=== PATIENT | female | born 2000 | race Caucasian/White ===

== ENCOUNTER 2022-08-20 12:06 | Emergency (ER) | payer OTHER, MEDICAID, SELFPAY ==
[2022-08-20 12:19] VITALS: BP 115/81; PULSE 89; RESP 14; TEMP 36.6; O2SAT 98; BMI 21.4
--- NOTE | 2022-08-20 13:14 | ED_ITS ---
HPI - General Adult General Time Seen by Provider: 13:14 Date Seen: 08/20/22 Chief complaint: Dizziness/Vertigo Stated complaint: Dehydrated/lightheaded/fatigue Time Seen by Provider: 08/20/22 13:10 Source: patient, RN notes reviewed and old records reviewed Mode of arrival: ambulatory Limitations: no limitations Related Data Home Medications Medication Instructions Recorded Confirmed dextroamphetamine-amphetamine ER ea PO 05/02/22 05/02/22 20 mg 24hr capsule,extend release (Adderall XR) drospirenone 3 mg-ethinyl 1 tab PO QDAY 05/02/22 05/02/22 estradiol 0.02 mg tablet (JAVIER (28)) escitalopram oxalate 20 mg tablet 20 mg PO QDAY 05/02/22 05/02/22 midodrine 5 mg tablet 5 mg PO TID 05/02/22 05/02/22 ondansetron 4 mg disintegrating 4 mg PO Q8H PRN nausea and vomiting 05/02/22 05/02/22 tablet propranolol 20 mg tablet 20 mg PO TID 05/02/22 05/02/22 simethicone 80 mg chewable tablet 80 mg PO BID-QID PRN 05/02/22 05/02/22 (Gas Relief (simethicone)) Allergies Allergy/AdvReac Type Severity Reaction Status Date / Time No Known Drug Allergies Allergy Verified 05/02/22 14:12 [facility] Medical History (Updated 05/02/22 @ 14:33 by Kamilah Martínez, MARKET [employer]EARCH COORDINATOR, HOME [employer]PLI[employer]ES MECH[employer]IC) Gastroparesis POTS (postural orthostatic tachycardia syndrome) Social History Smoking Status: Never smoker Exam Const: Vital Signs, click to edit/add: Vital Signs - 24 hr 08/20/22 12:19 Temperature 97.9 F Pulse Rate [Right Pulse Oximeter] 89 Respiratory Rate 14 Blood Pressure [Ri ght Upper Arm] 115/81 Pulse Oximetry 98 Oxygen Delivery Me thod Room Air Course Vital Signs Vital signs: Initial Vital Signs Temperature 97.9 F 08/20/22 12:19 Temperature Source Temporal Artery Scan 08/20/22 12:19 Pulse Rate 89 08/20/22 12:19 Respiratory Rate 14 08/20/22 12:19 Blood Pressure 115/81 08/20/22 12:19 Blood Pressure Mean 92 08/20/22 12:19 Blood Pressure Position Sitting 08/20/22 12:19 Pulse Oximetry 98 08/20/22 12:19 Oxygen Delivery Method 08/20/22 12:19 Vital Signs Temperature 97.9 F 08/20/22 12:19 Pulse Rate 89 08/20/22 12:19 Respiratory Rate 14 08/20/22 12:19 Blood Pressure 115/81 08/20/22 12:19 Pulse Oximetry 98 08/20/22 12:19 Oxygen Delivery Method 08/20/22 12:19 Temperature 97.9 F 08/20/22 12:19 Pulse Rate 89 08/20/22 12:19 Respiratory Rate 14 08/20/22 12:19 Blood Pressure 115/81 08/20/22 12:19 Pulse Oximetry 98 08/20/22 12:19 Oxygen Delivery Method 08/20/22 12:19 Discharge Plan Discharge Prescriptions: No Action propranolol 20 mg tablet 20 mg PO TID midodrine 5 mg tablet 5 mg PO TID Label Comments: TAKE 1 TABLET BY MOUTH 3 TIMES DAILY. dextroamphetamine-amphetamine [Adderall XR] 20 mg capsule,extended release 24hr PO Label Comments: TAKE 1 CAPSULE BY MOUTH EVERY DAY escitalopram oxalate 20 mg tablet 20 mg PO QDAY Label Comments: TAKE 1 TABLET BY MOUTH EVERY DAY ondansetron 4 mg tablet,disintegrating 4 mg PO Q8H PRN (Reason: nausea and vomiting) Label Comments: TAKE 1 TABLET BY MOUTH EVERY 8 HOURS NEEDED FOR NAUSEA simethicone [Gas Relief (simethicone)] 80 mg tablet,chewable 80 mg PO BID-QID PRN drospirenone-ethinyl estradiol [JAVIER (28)] 3-0.02 mg tablet 1 tab PO QDAY Follow Up/Referrals: Provider,Not a Local [Primary Care Provider] -
--- NOTE | 2022-08-20 13:24 | ED_ITS ---
HPI - Dizziness General Date Seen: 08/20/22 Chief Complaint: Dizziness/Vertigo Stated Complaint: Dehydrated/lightheaded/fatigue Time Seen by Provider: 08/20/22 13:10 Source: patient Mode of arrival: ambulatory Limitations: no limitations History of Present Illness HPI Narrative: Patient is a 21-year-old female who has struggles with the diagnosis of gastroparesis and POTS syndrome, she has been feeling lumbar fatigue, inability to really take fluids in his much, little bit of nausea, but no vomiting, denies any chest pain shortness of breath falls injury, chest pain, or tachycardic gee ure, no history of fevers chills sore throat associated with this she has tested twice for COVID positive, last time was in November 2021. Denies any dysuria frequency, or any other symptoms. She usually improves with a history of IV fluids, is requesting nose here today. She was hospitalized a [facility], where they did number of testing on her last year. 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 Related Data Home Medications Medication Instructions Recorded Confirmed dextroamphetamine-amphetamine ER ea PO 05/02/22 05/02/22 20 mg 24hr capsule,extend release (Adderall XR) drospirenone 3 mg-ethinyl 1 tab PO QDAY 05/02/22 05/02/22 estradiol 0.02 mg tablet (JAVIER (28)) escitalopram oxalate 20 mg tablet 20 mg PO QDAY 05/02/22 05/02/22 midodrine 5 mg tablet 5 mg PO TID 05/02/22 05/02/22 ondansetron 4 mg disintegrating 4 mg PO Q8H PRN nausea and vomiting 05/02/22 05/02/22 tablet propranolol 20 mg tablet 20 mg PO TID 05/02/22 05/02/22 simethicone 80 mg chewable tablet 80 mg PO BID-QID PRN 05/02/22 05/02/22 (Gas Relief (simethicone)) Allergies Allergy/AdvReac Type Severity Reaction Status Date / Time No Known Drug Allergies Allergy Verified 05/02/22 14:12 Review of Systems Status of ROS: Reports: 10 or more systems reviewed and unremarkable except as noted in History and below [facility] Medical History Gastroparesis POTS (postural orthostatic tachycardia syndrome) Social History Smoking Status: Never smoker Do you use any of these nicotine containing products: None Second hand tobacco smoke exposure: No How often do you have a drink containing alcohol: never AUDIT-C Alcohol total score: 0 Non-prescribed substance use: denies use service: No Exam Narrative: Exam Narrative: Patient is speaking normally, no problem with slurring words, oriented x3. Head eyes ears nose and throat exam show equal pupils, no scleral icterus, extraocular muscles are normal, no facial droop, speech is normal, trachea normal and midline. Thyroid normal midline palpable not enlarged. Chest shows symmetrical rise bilaterally, normal auscultation with no wheezes, no increased work of breathing, no overt bruising or lesions seen, no tenderness is noted on auscultation. Heart sounds normal with no S3-S4 no murmurs clicks or gallops. Abdomen shows no obvious masses or hepatosplenomegaly, no organomegaly, bowel sounds are normal in all quadrants. No tenderness is noted also in all quadrants. Upper and lower extremities show normal power, normal range of motion, pulses are normal, sensations normal, fine motor movements are normal, pelvis is stable to rocking. Cervical spine shows normal range of motion, and palpably not tender. Thoracic spine shows normal range of motion, and palpably not tender, lumbar spine shows no tenderness to palpation percussion and is otherwise normal range of motion. Skin shows no rashes, petechiae or eccymosis. Const: Vital Signs, click to edit/add: Vital Signs - 24 hr 08/20/22 12:19 08/20/22 15:30 Temperature 97.9 F Pulse Rate [Right Pulse Oximeter] 89 63 Respiratory Rate 14 16 Blood Pressure [Ri ght Upper Arm] 115/81 101/67 Pulse Oximetry 98 100 Oxygen Delivery Me thod Room Air Room Air Course Course Hospital Course: Patient received 2 L of fluids are reviewed the laboratory tests with her, I do not see any evidence any acute abnormality, I think this is a manifestation of her chronic illness. She says she feels maybe a little bit better. This point she is willing to trial as an outpatient. I think there is a acute issue going on here. Back told her to watch out for signs of worsening. Vital Signs Vital signs: Initial Vital Signs Temperature 97.9 F 08/20/22 12:19 Temperature Source Temporal Artery Scan 08/20/22 12:19 Pulse Rate 89 08/20/22 12:19 Respiratory Rate 14 08/20/22 12:19 Blood Pressure 115/81 08/20/22 12:19 Blood Pressure Mean 92 08/20/22 12:19 Blood Pressure Position Sitting 08/20/22 12:19 Pulse Oximetry 98 08/20/22 12:19 Oxygen Delivery Method 08/20/22 12:19 Vital Signs Temperature 97.9 F 08/20/22 12:19 Pulse Rate 89 08/20/22 12:19 Respiratory Rate 14 08/20/22 12:19 Blood Pressure 115/81 08/20/22 12:19 Pulse Oximetry 98 08/20/22 12:19 Oxygen Delivery Method 08/20/22 12:19 Temperature 97.9 F 08/20/22 12:19 Pulse Rate 63 08/20/22 15:30 Respiratory Rate 16 08/20/22 15:30 Blood Pressure 101/67 08/20/22 15:30 Pulse Oximetry 100 08/20/22 15:30 Oxygen Delivery Method 08/20/22 15:30 MDM - Dizziness MDM Narrative Medical decision making narrative: Life-threatening differential diagnosis considered include stroke, coronary artery disease, pneumonia, and heart failure. Other differential diagnosis include but are not limited to electrolyte imbalances, anemia, medication reactions, and urinary tract infection I discussed with her use of fluids which I do not think is atypical and probably will help her. We will also do a CBC and a basic, she has declined testing, UA testing, and all other testing. Differential Diagnosis Differential diagnosis: Likely adverse reaction to drug, benign paroxysmal positional vertigo, orthostatic hypotension, vertebral basilar insufficiency, cerebrovascular accident, acute vestibular neuronitis and transient cerebral ischemia Medical Records Attestation: I reviewed the patient's medical records. Lab Data Attestation: I reviewed the patient's lab results. Labs: Lab Results 08/20/22 08/20/22 Range/Units 13:40 13:40 WBC 8.60 (4.50-11.00) K/uL RBC 4.40 (4.00-5.20) m/uL Hgb 12.5 (12.0-16.0) gm/dL Hct 38.1 (33.0-51.0) % MCV 87 (80-100) fL MCH 28 (26-34) pg MCHC 33 (32-36) gm/dL RDW Coeff of Ken 11.2 L (11.5-15.5) % Plt Count 311 (140-440) K/uL Neut % (Auto) 52.7 (42.0-72.0) % Lymph % (Auto) 37.8 (20-44) % Sac % (Auto) 6.4 (0.0-11.0) % Eos % (Auto) 2.4 (0.0-7.0) % Baso % (Auto) 0.5 (0.0-3.0) % Neut # (Auto) 4.53 (1.7-7.0) K/uL Lymph # (Auto) 3.25 H (0.90-2.90) K/uL Sac # (Auto) 0.60 (0.00-0.90) K/UL Eos # (Auto) 0.21 (0.00-0.50) K/uL Baso # (Auto) 0.04 (0.00-0.30) K/uL Sodium 138 (135-149) mmol/L Potassium 3.9 (3.6-5.1) mmol/L Chloride 108 (96-114) mmol/L Carbon Dioxide 26 (20-32) mmol/L BUN 8 (5-24) mg/dL Creatinine 0.7 (0.5-1.5) mg/dL Estimated Creat Clear 133.11 Estimated GFR 127 ml/min Glucose 85 (60-115) mg/dL Calcium 9.2 (8.4-10.6) mg/dL Discharge Plan Discharge Clinical Impression: COVID-19 marianne dye, POTS (postural orthostatic tachycardia syndrome) Patient Disposition: Home, Self-Care Condition: Stable Additional Instructions: Home rest continue medications, I hope you feel better. Follow-up primary care as needed her back in the ER. Activity Level: No Restrictions Discharge Diet: Regular Prescriptions: No Action propranolol 20 mg tablet 20 mg PO TID midodrine 5 mg tablet 5 mg PO TID Label Comments: TAKE 1 TABLET BY MOUTH 3 TIMES DAILY. dextroamphetamine-amphetamine [Adderall XR] 20 mg capsule,extended release 24hr PO Label Comments: TAKE 1 CAPSULE BY MOUTH EVERY DAY escitalopram oxalate 20 mg tablet 20 mg PO QDAY Label Comments: TAKE 1 TABLET BY MOUTH EVERY DAY ondansetron 4 mg tablet,disintegrating 4 mg PO Q8H PRN (Reason: nausea and vomiting) Label Comments: TAKE 1 TABLET BY MOUTH EVERY 8 HOURS NEEDED FOR NAUSEA simethicone [Gas Relief (simethicone)] 80 mg tablet,chewable 80 mg PO BID-QID PRN drospirenone-ethinyl estradiol [JAVIER (28)] 3-0.02 mg tablet 1 tab PO QDAY Follow Up/Referrals: Provider,Not a Local [Primary Care Provider] - Stand Alone Forms: [facility] Info Instructions
[2022-08-20 13:50] LABS: Basophils Absolute Auto 0.04 K/uL (0.00-0.30); Basophils Percent Auto 0.5 % (0.0-3.0); Eosinophils Absolute Auto 0.21 K/uL (0.00-0.50); Eosinophils Percent Auto 2.4 % (0.0-7.0); Hematocrit 38.1 % (33.0-51.0); Hemoglobin* 12.5 gm/dL (12.0-16.0); Immature Granulocytes Abs Auto 0.02 K/uL (0.00-0.30); Immature Granulocytes Pct Auto 0.2 %; Lymphocytes Absolute Auto 3.25 K/uL (0.90-2.90); Lymphocytes Percent Auto 37.8 % (20-44); Mean Corpuscular HGB Conc 33 gm/dL (32-36); Mean Corpuscular Hemoglobin 28 pg (26-34); Mean Corpuscular Volume 87 fL (80-100); Monocytes Percent Auto 6.4 % (0.0-11.0); Neutrophils Absolute Auto 4.53 K/uL (1.7-7.0); Neutrophils Percent Auto 52.7 % (42.0-72.0); Platelet Count* 311 K/uL (140-440); RDW Coefficient of Variation % 11.2 % (11.5-15.5)
[2022-08-20] MEDS: 0.9 % SODIUM CHLORIDE 1000 ml 1,000 ML IV ×2 (13:50→14:46)
[2022-08-20 13:52] LABS: Slide Review Reflex No
[2022-08-20 14:16] LABS: Chloride* 108 mmol/L (96-114); Potassium* 3.9 mmol/L (3.6-5.1); Sodium* 138 mmol/L (135-149)
[2022-08-20 14:19] LABS: Carbon Dioxide* 26 mmol/L (20-32); Creatinine* 0.7 mg/dL (0.5-1.5); Est. Creatinine Clearance* 133.11; Estimated Glomerular Filt Rate 127 ml/min
[2022-08-20 14:20] LABS: Blood Urea Nitrogen* 8 mg/dL (5-24); Calcium* 9.2 mg/dL (8.4-10.6); Glucose* 85 mg/dL (60-115)
[2022-08-20 15:30] VITALS: BP 101/67; PULSE 63; RESP 16; O2SAT 100
== END 2022-08-20 15:59 | disposition home or self-care (01) ==
PROVIDERS: Emergency Provider Family Medicine
DX: U07.1 COVID-19 (principal); G90.A Postural orthostatic tachycardia syndrome [POTS]
CPT/HCPCS: 36415; 80048; 85025; 99283; 99284; J7030